=== PATIENT | female | born 1970 | race Caucasian/White ===

== ENCOUNTER 2017-01-17 02:13 | Inpatient (IN) | payer MEDICAID ==
[~2017-01-17] VITALS: Ht 157.5 cm; Wt 84.4 kg
[~2017-01-17 02:13] MED LIST: ASPI-535 PO; HYDR-3498 PO; IBUP-1542 PO
[2017-01-17 03:05] LABS: BASOPHILS % 0.5 % (0.0-2.0); EOSINOPHILS # 0.1 10^3/ul (0.0-0.5); EOSINOPHILS % 2.1 % (0.0-7.0); HEMATOCRIT 39.4 % (37.0-47.0); HEMOGLOBIN 13.6 g/dl (12.0-16.0); LYMPHOCYTES # 2.6 10^3/ul (0.8-2.9); LYMPHOCYTES % 39.5 % (15.0-51.0); MEAN CORPUSCULAR HEMOGLOBIN 31.1 pg (29.0-33.0); MEAN CORPUSCULAR HGB CONC 34.5 g/dl (32.0-37.0); MEAN PLATELET VOLUME 9.7 fl (7.4-10.4); MONOCYTE # 0.4 10^3/ul (0.3-0.9); MONOCYTES % 5.9 % (0.0-11.0); NEUTROPHIL # 3.4 10^3/ul (1.6-7.5); NEUTROPHILS % 51.8 % (39.0-77.0); PLATELET COUNT 228 10^3/UL (140-415); RED BLOOD COUNT 4.38 10^6/ul (4.20-5.40); WHITE BLOOD COUNT 6.6 10^3/ul (4.8-10.8)
[2017-01-17 03:27] LABS: ALBUMIN 4.3 g/dl (3.3-4.9); ALBUMIN/GLOBULIN RATIO 1.43; BILIRUBIN,INDIRECT 0.3 mg/dl (0-1.1); BILIRUBIN,TOTAL 0.3 mg/dl (0.2-1.3); CALCIUM 9.1 mg/dl (8.4-10.2); CREATININE 0.82 mg/dl (0.44-1.00); POTASSIUM 3.3 mmol/L (3.5-5.1); TOTAL PROTEIN 7.3 g/dl (6.1-8.1)
--- NOTE | 2017-01-17 03:32 | RADRPT ---
PROCEDURE: CHEST - 1 VIEW CLINICAL INDICATION: 46-year-old female with chest pain. TECHNIQUE: A single frontal AP upright portable view of the chest was performed. The images were reviewed on a PACS workstation. COMPARISON: CR CHEST 07/31/2015 FINDINGS: The cardiomediastinal silhouette has a normal appearance. There is no evidence for an infiltrate. There is no evidence for congestive heart failure. There is no evidence for pneumothorax. The osseou s structures are intact. IMPRESSION: No evidence for active cardiopulmonary disease. .Marlo Gallo MD, MD Date Time Electronically viewed and signed by .Marlo Gallo MD, on 01/17/2017 03:32 .M/
[2017-01-17 03:39] LABS: TROPONIN-I 0.583 ng/ml (0.00-0.12)
[2017-01-17] MEDS ORDERED: ASPIRIN 325 MG TAB PO ONE (04:00)
--- NOTE | 2017-01-17 05:36 | ERD ---
ER Documentation Chief Complaint Chief Complaint NON RADIATING CHEST PAIN SINCE 9PM. WORSE NOW. HX HEART ATTACK 15 YEARS AGO HPI This is a 46-year-old female with a non-rating chest pain since 9 PM. That is worse now. She has a history of heart attack 15 years ago. Pain is mild to moderate intensity, midsternal with no signs of elevated factors and is mild to moderate intensity. No shortness of breath. No diaphoresis. No other current complaints. ROS All systems reviewed and are negative except as per history of present illness. Medications Home Meds Active Scripts Ibuprofen* (Motrin*) 600 Mg Tab, 600 MG PO Q6H Y for PAIN AND OR ELEVATED TEMP, #30 TAB Prov:ALFA VELARDE MD 08/01/15 Hydrocodone Bit-Acetaminophen* ([place]*) 5-325 Mg Tab, 1 TAB PO Q6 Y for PAIN, # 10 TAB Prov:ALFA VELARDE MD 08/01/15 Reported Medications Aspirin Ec (Aspir 81) 81 Mg Tablet.dr, 81 MG PO DAILY, #30 TAB 07/31/15 Allergies Allergies: Coded Allergies: No Known Allergy (Unverified , 01/17/17) PMhx/Soc History of Surgery: No Anesthesia Reaction: No Hx Neurological Disorder: No Hx Respiratory Disorders: No Hx Cardiac Disorders: Yes (htn; cholesterol, HX of OR 15 years ago, possible stent) Hx Psychiatric Problems: No Hx Miscellaneous Medical Probl: Yes (shingles) Hx Alcohol Use: No Hx Substance Use: No Hx Tobacco Use: No Smoking Status: Never smoker Physical Exam Vitals Vital Signs Date Time Temp Pulse Resp B/P Pulse Ox O2 Delivery O2 Flow Rate FiO2 01/17/17 02:42 97.0 71 18 131/71 98 Room Air 01/17/17 02:15 97.0 102 18 180/78 95 Physical Exam Const: [] Head: Atraumatic Eyes: Normal Conjunctiva ENT: Normal External Ears, Nose and Mouth. Neck: Full range of motion..~ No meningismus. Resp: Clear to auscultation bilaterally Cardio: Regular rate and rhythm, no murmurs Abd: Soft, non tender, non distended. Normal bowel sounds Skin: No petechiae or rashes Back: No midline or flank tenderness Ext: No cyanosis, or edema Neur: Awake and alert Psych: Normal Mood and Affect Result Diagram: 01/17/17 0240 01/17/17 0240 Results 24 hrs Laboratory Tests Test 01/17/17 02:40 White Blood Count 6.610^3/ul Red Blood Count 4.3810^6/ul Hemoglobin 13.6g/dl Hematocrit 39.4% Mean Corpuscular Volume 90.0fl Mean Corpuscular Hemoglobin 31.1pg Mean Corpuscular Hemoglobin Concent 34.5g/dl Red Cell Distribution Width 12.0% Platelet Count 95450^3/UL Mean Platelet Volume 9.7fl Neutrophils % 51.8% Lymphocytes % 39.5% Monocytes % 5.9% Eosinophils % 2.1% Basophils % 0.5% Nucleated Red Blood Cells % 0.0/100WBC Neutrophils # 3.410^3/ul Lymphocytes # 2.610^3/ul Monocytes # 0.410^3/ul Eosinophils # 0.110^3/ul Basophils # 0.010^3/ul Nucleated Red Blood Cells # 0.010^3/ul Sodium Level 144mmol/L Potassium Level 3.3mmol/L Chloride Level 106mmol/L Carbon Dioxide Level 27mmol/L Anion Gap 14 Blood Urea Nitrogen 11mg/dl Creatinine 0.82mg/dl Glucose Level 131mg/dl Calcium Level 9.1mg/dl Total Bilirubin 0.3mg/dl Direct Bilirubin 0.00mg/dl Indirect Bilirubin 0.3mg/dl Aspartate Amino Transf (AST/SGOT) 46IU/L Alanine Aminotransferase (ALT/SGPT) 53IU/L Alkaline Phosphatase 85IU/L Troponin I 0.583ng/ml B-Type Natriuretic Peptide 493PG/ML Total Protein 7.3g/dl Albumin 4.3g/dl Globulin 3.00g/dl Albumin/Globulin Ratio 1.43 Current Medications Medications (Trade) Dose Ordered Sig/Yuliya Route PRN Reason Start Time Stop Time Status Last Admin Dose Admin Aspirin (Aspirin) 325 mg ONCE ONCE PO 01/17/17 04:00 01/17/17 04:01 DC 01/17/17 04:09 Procedures/MDM EKG: Rate/Rhythm: [Normal Sinus Rhythm] QRS, ST, T-waves: [No changes consistent w/ acute ischemia] Impression: [No evidence of ischemia or arrhythmia]\ Chest X-ray 1V Interpreted by me: Soft Tissue: No acute abnormalities Bones: No acute abnormalities Mediastinum/Cardiac Silhouette/Lungs: [No acute abnormalities] Patient's symptoms are concerning for cardiac cause will require inpatient workup and continuous monitoring. Further w/u for ischemia, arrhythmia, PE or dissection will be deferred to the inpatient team. Accepting Care Team: Current data and ongoing care discussed. Time: 5:35 AM Primary Provider: Hospitalist Consulting: [XOXOXO] Outstanding Data: none Departure Diagnosis: Primary Impression: Chest pain Chest pain type: unspecified Qualified Code: R07.9 - Chest pain, unspecified type Additional Impression: NSTEMI (non-ST elevated myocardial infarction) Condition: Serious GINNY FRANZ Jan 17, 2017 05:36
[2017-01-17] MEDS ORDERED: NITROGLYCERIN (SL) 0.4 MG TAB SL ONE (08:00)
[2017-01-17] MEDS ORDERED: morphine 2 MG INJ IV PRN (08:00)
[2017-01-17] MEDS ORDERED: LISI-313 PO (08:08)
--- NOTE | 2017-01-17 09:05 | HP ---
Date/Time of Note Date/Time of Note DATE: 01/17/17 TIME: 09:05 Assessment/Plan VTE Prophylaxis VTE Prophylaxis Intervention: heparin Lines/Catheters IV Catheter Type (from Nrsg): Saline Lock Assessment/Plan Assessment/Plan 1. NSTEMI -admit to tele -trend trop -supplemental oxygen, ASA, BB, statin with as needed nitro and morphine -start treatment dose heparin based on next trop level -2D-echo and cardiology consult 2. Hypertension: better controlled now -cont anti-hypertensives with adjustment as needed 3. Hypokalemia -replete HPI/ROS Admit Date/Time Admit Date/Time Hx of Present Illness This is a 46 yo female with hx of HTN who presented to ER co chest pain x 1 day. Pain id slightly left sided with no radiation. No associated SOB, N/V or diaphoresis. In ER, BP was 180/78 with HR of 102. EKG no ST-T wave abnormalities and first trop is 0.583. PMH/Family/Social Social History Smoking Status: Never smoker Exam/Review of Systems Vital Signs Vitals Vital Signs Date Time Temp Pulse Resp B/P Pulse Ox O2 Delivery O2 Flow Rate FiO2 01/17/17 06:49 97.9 75 18 149/78 98 Room Air 01/17/17 06:31 2 Exam Constitutional: alert, oriented, well developed Head: atraumatic, normocephalic Eyes: EOMI, PERRL Respiratory: clear to auscultation, normal air movement Cardiovascular: nl pulses, regular rate and rhythm Gastrointestinal: non-tender, soft Extremities: normal pulses Labs Result Diagram: 01/17/17 0240 01/17/17 0240 Medications Medications Current Medications Morphine Sulfate (morphine) 2 mg Q4H PRN IV pain Last administered on 08:54; Admin Dose 2 MG; Start 01/17/17 at 08:00 Metoprolol Tartrate (Lopressor) 25 mg Q12 PO ; Start 01/17/17 at 09:00 Atorvastatin Calcium (Lipitor) 40 mg QHS PO ; Start 01/17/17 at 21:00 GINNY BOSS MD Jan 17, 2017 09:05
[2017-01-17 09:42] LABS: CK-MB 22.8 ng/ml (0.0-2.4)
[2017-01-17 09:57] LABS: TROPONIN-I 2.09 ng/ml (0.00-0.12)
[2017-01-17] MEDS: LISINOPRIL 5 MG TAB PO SCH (10:01)
[2017-01-17] MEDS ORDERED: HEPARIN 1000 UNITS/ML 10 ML INJ IV ONE (11:00)
[2017-01-17] MEDS ORDERED: HEPARIN 1000 UNITS/ML 10 ML INJ IV PRN (11:00)
[2017-01-17] MEDS: HEPARIN 25000 UNITS/250 ML 250 ML IV SCH ×2 (11:04→18:32)
[2017-01-17 11:15] LABS: BASOPHILS % 0.3 % (0.0-2.0); EOSINOPHILS # 0.1 10^3/ul (0.0-0.5); EOSINOPHILS % 1.6 % (0.0-7.0); HEMATOCRIT 37.3 % (37.0-47.0); HEMOGLOBIN 12.9 g/dl (12.0-16.0); LYMPHOCYTES # 2.2 10^3/ul (0.8-2.9); LYMPHOCYTES % 34.5 % (15.0-51.0); MEAN CORPUSCULAR HEMOGLOBIN 31.3 pg (29.0-33.0); MEAN CORPUSCULAR HGB CONC 34.6 g/dl (32.0-37.0); MEAN CORPUSCULAR VOLUME 90.5 fl (82.0-101.0); MEAN PLATELET VOLUME 9.6 fl (7.4-10.4); MONOCYTE # 0.5 10^3/ul (0.3-0.9); MONOCYTES % 7.7 % (0.0-11.0); NEUTROPHIL # 3.5 10^3/ul (1.6-7.5); NEUTROPHILS % 55.6 % (39.0-77.0); PLATELET COUNT 216 10^3/UL (140-415); RED BLOOD COUNT 4.12 10^6/ul (4.20-5.40); RED CELL DISTRIBUTION WIDTH 12.2 % (11.5-14.5); WHITE BLOOD COUNT 6.4 10^3/ul (4.8-10.8)
[2017-01-17 11:33] LABS: INR 1.02; PROTIME 13.5 Sec (11.9-14.9); PT RATIO 1.1
[2017-01-17 11:34] LABS: PARTIAL THROMBOPLASTIN TIME 28.4 Sec (25.0-35.0)
[2017-01-17] MEDS ORDERED: ACETAMINOPHEN 325 MG TAB PO PRN (13:00)
[2017-01-17] MEDS ORDERED: ONDANSETRON 4 MG INJ IV PRN (13:00)
[2017-01-17] MEDS: METOPROLOL 25 MG TAB PO SCH ×2 (14:37→20:46)
--- NOTE | 2017-01-17 15:24 | RADRPT ---
Echocardiogram Report Patient Name: MAVERICK NORTON Gender: Female Date: 1970 Study Date: 17-Jan-2017 Hand Coke Drawer: Mechelle Ochoa RDCS Location: [facility] Ref. Physician: GINNY BOSS Quality: Good Procedures: Transthoracic echocardiogram with complete 2D, M-Mode, and doppler examination. Indications: NSTEMI. 2D/M Mode Doppler Measurement Value Normal Ranges Measurement Value Normal Ranges LVIDd 2D 4.5 3.5 - 5.6 cm AV Peak Marcin 1.3 m/sec LVIDs 2D 2.3 2.1 - 4.1 cm AV Peak PG 6.6 mmHg LVPWd 2D 1.0 0.6 - 1.1 cm LVOT Peak Marcin 1.1 m/sec IVSd 2D 1.0 0.6 - 1.1 cm LVOT Peak PG 5.0 mmHg AoR Diam 2D 2.3 2.0 - 3.7 cm MV E Peak Marcin 0.7 m/sec EDV 2D 93.5 cm3 MV A Peak Marcin 0.8 m/sec ESV 2D 11.7 cm3 MV E/A 1.0 LA Dimen 2D 2.7 2.3 - 4.0 cm MV Decel Time 169 msec MV Decel [place] 4 MV E/A 1.0 TR Peak Marcin 2.8 m/sec TR Peak PG 31.2 mmHg RVSP 34.0 mmHg Findings Left Ventricle: Lower limits of normal systolic function. Normal left ventricular cavity size. Normal left ventricular wall thickness. Ejection fraction is visually estimated at 5055 %. These segments of the LV are hypokinetic apex. Right Ventricle: Normal right ventricular size. Normal right ventricular systolic function. Left Atrium: The left atrium is normal in size. Right Atrium: The right atrium is normal in size. Mitral Valve: Normal appearance of the mitral valve. Trace mitral regurgitation. Aortic Valve: Normal appearance of the aortic valve. No significant aortic stenosis or insufficiency. Tricuspid Valve: Normal appearance of the tricuspid valve. Estimated peak PA systolic pressure 34 mmHg. There is mild tricuspid regurgitation. Pulmonic Valve: Normal pulmonic valve appearance. Pericardium: Normal pericardium with no significant pericardial effusion. Aorta: Normal aortic root. IVC: Normal size and normal respiratory collapse consistent with normal right atrial pressure. Conclusions 1.The left ventricle is normal in size with lower limits of normal overall systolic function. 2.The apex is hypokinetic. 3.Estimated left ventricular ejection fraction of 50-55%. Electronically Signed By: Willian Villanueva 17-Jan-2017 15:23:55 -0800 Patient Name: MAVERICK NORTON Study Date: 17-Jan-[id number]
[2017-01-17 15:39] LABS: CK-MB 26.1 ng/ml (0.0-2.4)
--- NOTE | 2017-01-17 15:49 | CONS ---
Date/Time of Note Date/Time of Note DATE: 01/17/17 TIME: 15:43 Assessment/Plan Assessment/Plan Chief Complaint/Hosp Course Assessment: NSTEMI Coronary artery disease Hypertension Hypokalemia - replete Recommendations: -continue heparin drip -continue aspirin at 325mg daily -continue atorvastatin 40mg daily, check lipid panel -continue metoprolol 25mg BID and lisinopril 5mg daily, up titrate as needed/ tolerated -echocardiogram showed LVEF 50-55%, hypokinetic apex -coronary angiography scheduled for tomorrow morning Problems: Consultation Date/Type/Reason Admit Date/Time Type of Consultation: Cardiology Reason for Consultation elevated troponin Hx of Present Illness The patient is a 46 year-old female who presented with a one day history of chest pain. EKG showed sinus rhythm, Q wave in III, poor R wave progression, and no acute ischemic changes. Initial troponin was elevated at 0.583 and the second troponin trended up to 2.09. She reports a history of myocardial infarction 10 years ago. She underwent coronary angiography at that time, but is unsure if she had percutaneous coronary intervention. 14 point review of systems negative other than per HPI. Past Medical History Medical History: coronary artery disease, hypertension Past Surgical History Past Surgical Hx: no surgical history Family History Significant Family History: no pertinent family hx Social History Smoking Status: Never smoker Exam/Review of Systems Vital Signs Vitals Vital Signs Date Time Temp Pulse Resp B/P Pulse Ox O2 Delivery O2 Flow Rate FiO2 01/17/17 13:38 97.9 58 20 131/68 98 Room Air 01/17/17 06:31 2 Exam Constitutional: alert, well developed Psych: nl mood/affect, no complaints Head: atraumatic, normocephalic Eyes: nl conjunctiva, nl lids ENMT: nl external ears & nose, nl nasal mucosa & septum Neck: non-tender, supple, No jvd Respiratory: clear to auscultation, normal air movement Cardiovascular: regular rate and rhythm Gastrointestinal: non-tender, soft Musculoskeletal: nl extremities to inspection Extremities: No clubbing, No cyanosis, No edema Neurological: nl mental status, nl speech Skin: nl turgor Results Result Diagram: 01/17/17 1055 01/17/17 0240 Results 24 hrs Laboratory Tests Test 01/17/17 02:40 01/17/17 08:43 01/17/17 10:55 White Blood Count 6.6 # 6.4 Red Blood Count 4.38 4.12 L Hemoglobin 13.6 12.9 Hematocrit 39.4 37.3 Mean Corpuscular Volume 90.0 90.5 Mean Corpuscular Hemoglobin 31.1 31.3 Mean Corpuscular Hemoglobin Concent 34.5 34.6 Red Cell Distribution Width 12.0 12.2 Platelet Count 228 216 Mean Platelet Volume 9.7 # 9.6 Neutrophils % 51.8 55.6 Lymphocytes % 39.5 34.5 Monocytes % 5.9 7.7 Eosinophils % 2.1 1.6 Basophils % 0.5 0.3 Nucleated Red Blood Cells % 0.0 0.0 Neutrophils # 3.4 3.5 Lymphocytes # 2.6 2.2 Monocytes # 0.4 0.5 Eosinophils # 0.1 0.1 Basophils # 0.0 0.0 Nucleated Red Blood Cells # 0.0 0.0 Sodium Level 144 Potassium Level 3.3 L Chloride Level 106 Carbon Dioxide Level 27 Anion Gap 14 Blood Urea Nitrogen 11 Creatinine 0.82 Glucose Level 131 Calcium Level 9.1 Total Bilirubin 0.3 Direct Bilirubin 0.00 Indirect Bilirubin 0.3 Aspartate Amino Transf (AST/SGOT) 46 Alanine Aminotransferase (ALT/SGPT) 53 Alkaline Phosphatase 85 Troponin I 0.583 *H 2.090 *H B-Type Natriuretic Peptide 493 H Total Protein 7.3 Albumin 4.3 Globulin 3.00 Albumin/Globulin Ratio 1.43 Creatine Kinase 426 H Creatine Kinase Index 5.4 Creatinine Kinase MB (Mass) 22.80 H Prothrombin Time 13.5 Prothrombin Time Ratio 1.1 INR International Normalized Ratio 1.02 Activated Partial Thromboplast Time 28.4 Medications Medications Current Medications Morphine Sulfate (morphine) 2 mg Q4H PRN IV pain Last administered on 08:54; Admin Dose 2 MG; Start 01/17/17 at 08:00 Metoprolol Tartrate (Lopressor) 25 mg Q12 PO Last administered on 01/17/17 14: 37; Admin Dose 25 MG; Start 01/17/17 at 09:00 Atorvastatin Calcium (Lipitor) 40 mg QHS PO ; Start 01/17/17 at 21:00 Aspirin (Halfprin) 81 mg DAILY PO ; Start 01/18/17 at 09:00 Lisinopril (Zestril) 5 mg DAILY PO Last administered on 01/17/17t 10:01; Admin Dose 5 MG; Start 01/17/17 at 09:30 Ondansetron HCl (Zofran Inj) 4 mg Q4 PRN IV NAUSEA; Start 01/17/17 at 13:00 Acetaminophen (Tylenol Tab) 650 mg Q6 PRN PO PAIN LEVEL 1-3 OR FEVER; Start at 13:00 BERNADINE ROSE MD Jan 17, 2017 15:49
[2017-01-17 15:53] LABS: TROPONIN-I 6.8 ng/ml (0.00-0.12)
[2017-01-17 16:19] VITALS: TEMP 98.9
[2017-01-17 17:17] VITALS: Ht 157.5 cm; Wt 84.4 kg
[2017-01-17 17:20] VITALS: PULSE 54
[2017-01-17 17:23] VITALS: BP 133/78; PULSE 52; RESP 18
[2017-01-17 19:21] VITALS: BP 127/64; RESP 20
[2017-01-17 20:45] VITALS: PULSE 66
[2017-01-17] MEDS ORDERED: ATORVASTATIN 40 MG TAB PO SCH (21:00)
[2017-01-18] VITALS (36 sets, daily range): BP systolic 90–143; BP diastolic 52–78; PULSE 50–85; RESP 12–22
[2017-01-18] MEDS: SOD CHLORIDE 0.9% 1,000 ML IV SCH ×2 (00:05→09:50)
[2017-01-18] MEDS: ASPIRIN (EC) 325 MG TAB PO SCH ×2 (08:48→08:51)
[2017-01-18] MEDS: METOPROLOL 25 MG TAB PO SCH ×2 (08:48→09:11)
[2017-01-18] MEDS: LISINOPRIL 5 MG TAB PO SCH ×2 (08:48→09:10)
[2017-01-18] MEDS ORDERED: ASPIRIN (EC) 81 MG TAB PO SCH (09:00)
[2017-01-18 09:10] LABS: BASOPHILS % 0.4 % (0.0-2.0); EOSINOPHILS # 0.1 10^3/ul (0.0-0.5); EOSINOPHILS % 2.7 % (0.0-7.0); HEMATOCRIT 39.2 % (37.0-47.0); HEMOGLOBIN 13.3 g/dl (12.0-16.0); LYMPHOCYTES # 2.3 10^3/ul (0.8-2.9); LYMPHOCYTES % 46.1 % (15.0-51.0); MEAN CORPUSCULAR HEMOGLOBIN 31.1 pg (29.0-33.0); MEAN CORPUSCULAR HGB CONC 33.9 g/dl (32.0-37.0); MEAN CORPUSCULAR VOLUME 91.6 fl (82.0-101.0); MEAN PLATELET VOLUME 9.8 fl (7.4-10.4); MONOCYTE # 0.4 10^3/ul (0.3-0.9); MONOCYTES % 7.8 % (0.0-11.0); NEUTROPHIL # 2.1 10^3/ul (1.6-7.5); PLATELET COUNT 237 10^3/UL (140-415); RED BLOOD COUNT 4.28 10^6/ul (4.20-5.40); RED CELL DISTRIBUTION WIDTH 12.4 % (11.5-14.5); WHITE BLOOD COUNT 4.9 10^3/ul (4.8-10.8)
[2017-01-18 09:38] LABS: CALCIUM 9.5 mg/dl (8.4-10.2); CHOL/HDL RATIO 3.9 RATIO; CREATININE 0.75 mg/dl (0.44-1.00); POTASSIUM 4.8 mmol/L (3.5-5.1)
[2017-01-18] MEDS: HEPARIN 25000 UNITS/250 ML 250 ML IV SCH (09:57)
[2017-01-18] MEDS ORDERED: IODIXANOL LOCM 100 ML BTL ONE (10:03)
[2017-01-18] MEDS ORDERED: MIDAZOLAM 1 MG/ML 2 ML INJ ONE (10:03)
[2017-01-18] MEDS ORDERED: LIDOCAINE 1% (MDV) 20 ML INJ ONE (10:03)
[2017-01-18] MEDS ORDERED: ADENOSINE 30 ML ONE (10:03)
[2017-01-18] MEDS ORDERED: HEPARIN 1000 UNITS/ML 10 ML INJ ONE (10:03)
[2017-01-18] MEDS ORDERED: FENTAnyl 50 MCG/ML VIAL ONE (10:04)
[2017-01-18] MEDS ORDERED: VERAPAMIL 5 MG INJ ONE (10:04)
[2017-01-18] MEDS ORDERED: NITROGLYCERIN (IC) 100 MCG/ML INJ ONE (10:04)
[2017-01-18] MEDS ORDERED: SOD CHLORIDE 0.9% 1,000 ML IV SCH (11:34)
--- NOTE | 2017-01-18 11:44 | OPR ---
Date/Time of Note Date/Time of Note DATE: 01/18/17 TIME: 11:37 Operative Report Preoperative Diagnosis NSTEMI Postoperative Diagnosis same Surgeon see signature line Platinumsmith none Anesthesia Type: moderate sedation Estimated Blood Loss: minimal Transfusion none Specimen none Grafts/Implants none Complications none Procedure Description Procedure Date:01/18/2017 Loop Tender/surgeon:Cristino Hart MD. Procedures Performed: 1)Left heart catheterization with selective left and right coronary angiography. 2)Left ventricle angiography Pre-operative Diagnosis:NSTEMI Post-operative Diagnosis: NSTEMI, ?takotsubo variant Indications: 46 yo F who presented with chest pain and was found to have an NSTEMI with trop 6.8 Description of Procedure: After informed consent, the patient was brought to the cardiac catheterization lab. The procedure site was prepped and draped in usual manner. The patient was premedicated with versed 1.5 mg and fentanyl 25 mcg. 2 mL lidocaine was injected into the right wrist. Next using the posterior wall technique, the 6/ 5 djiboutian sheath was inserted into the right radial artery. Next using the JL3.5 and JR4, selective angiography of the left and right coronary arteries were obtained. The pigtail was then advanced into the ventricle and hemodynamics obtained. Left ventricle angiography was obtained. Next all equipment was removed and hemostasis was obtained by TR band. Findings: Anatomy/Hemodynamics: Left main:normal LAD: normal Diagonal:normal Circumflex: normal Obtuse marginal:normal RCA:normal PDA: mid 40% at a turn vs tortuosity PLV: normal LV angiography: 40-45% with dyskinesis of the distal anterior and inferior apex but not the mid apex. ?Takotsubo variant LV-Ao: no gradient LVEDP: 20mmHg Contrast used: 105mL Fluoroscopy time:7 mL Estimated blood loss<10 mL. Specimen: none Grafts/implants: none Complications: none Assessment: NSTEMI with no obstructive lesions ?Variant Takotsubo: not typical appearance. Pt lost family members but 2 months ago so unclear if related but she has had significant stress since Cardiomyopathy Plan: -medical management of NSTEMI/cardiomyopathy CRISTINO HART Jan 18, 2017 11:44
--- NOTE | 2017-01-18 13:29 | PN ---
Date/Time of Note Date/Time of Note DATE: 01/18/17 TIME: 13:24 Assessment/Plan VTE Prophylaxis VTE Prophylaxis Intervention: SCD's Lines/Catheters IV [facility] Peripheral IV Assessment/Plan Chief Complaint/Hosp Course Assessment and plan 1. Non-ST elevated myocardial infarction. Patient was seen by blasting cap assembler. Patient is currently in recovery. Per report no obstructive lesion seen. Suspect possible ovarian tach with cerebral. Continue telemetry monitoring. Follow-up with blasting cap assembler recommendations. 2. History of CAD. Continue on statin medication. 3. Hypertension. Continue antihypertensives and adjust needed. Disposition plan: We will follow-up postop. Continue in-house monitoring. Follow-up with blasting cap assembler recommendations. Discussed plan of care with Dr. Tamayo Problems: Subjective 24 Hr Interval Summary Free Text/Dictation patient for heart cath Exam/Review of Systems Vital Signs Vitals Vital Signs Date Time Temp Pulse Resp B/P Pulse Ox O2 Delivery O2 Flow Rate FiO2 01/18/17 12:52 52 14 120/61 98 Room Air 01/18/17 09:10 98.1 01/17/17 06:31 2 Intake and Output 01/17/17 01/17/17 01/18/17 15:00 23:00 07:00 Intake Total 240 ml 240 ml Balance 240 ml 240 ml Exam patient for heart cath Results Result Diagram: 01/18/1718 01/18/17 0818 Results 24 hrs Laboratory Tests Test 01/17/17 14:45 01/17/17 17:25 01/18/17 00:11 01/18/17 08:18 Creatine Kinase 466 H Creatine Kinase Index 5.6 Creatinine Kinase MB (Mass) 26.10 H Troponin I 6.800 *H Activated Partial Thromboplast Time 107.1 *H 67.8 H 69.7 H White Blood Count 4.9 # Red Blood Count 4.28 Hemoglobin 13.3 Hematocrit 39.2 Mean Corpuscular Volume 91.6 Mean Corpuscular Hemoglobin 31.1 Mean Corpuscular Hemoglobin Concent 33.9 Red Cell Distribution Width 12.4 Platelet Count 237 Mean Platelet Volume 9.8 Neutrophils % 43.0 Lymphocytes % 46.1 Monocytes % 7.8 Eosinophils % 2.7 Basophils % 0.4 Nucleated Red Blood Cells % 0.0 Neutrophils # 2.1 Lymphocytes # 2.3 Monocytes # 0.4 Eosinophils # 0.1 Basophils # 0.0 Nucleated Red Blood Cells # 0.0 Sodium Level 144 Potassium Level 4.8 Chloride Level 107 Carbon Dioxide Level 30 Anion Gap 12 Blood Urea Nitrogen 10 Creatinine 0.75 Glucose Level 94 Hemoglobin A1c 5.4 Calcium Level 9.5 Triglycerides Level 99 Cholesterol Level 154 LDL Cholesterol, Calculated 95 HDL Cholesterol 39 Cholesterol/HDL Ratio 3.9 Medications Medications Current Medications Morphine Sulfate (morphine) 2 mg Q4H PRN IV pain Last administered on 08:54; Admin Dose 2 MG; Start 01/17/17 at 08:00 Metoprolol Tartrate (Lopressor) 25 mg Q12 PO Last administered on 01/18/17 09: 11; Admin Dose 25 MG; Start 01/17/17 at 09:00 Atorvastatin Calcium (Lipitor) 40 mg QHS PO Last administered on 01/17/17 20: 45; Admin Dose 40 MG; Start 01/17/17 at 21:00 Lisinopril (Zestril) 5 mg DAILY PO Last administered on 01/18/17 09:10; Admin Dose 5 MG; Start 01/17/17 at 09:30 Ondansetron HCl (Zofran Inj) 4 mg Q4 PRN IV NAUSEA; Start 01/17/17 at 13:00 Acetaminophen (Tylenol Tab) 650 mg Q6 PRN PO PAIN LEVEL 1-3 OR FEVER; Start at 13:00 Aspirin 325 mg 325 mg DAILY PO ; Start 01/18/17 at 09:00 Sodium Chloride (NS) 1,000 ml @ 75 mls/hr [id number] IV ; Start 01/18/17 at 11:34 ; Stop 01/18/17 at 16:33 CHELSEA ALMAZAN Jan 18, 2017 13:29
--- NOTE | 2017-01-18 19:48 | CONS ---
Date/Time of Note Date/Time of Note DATE: 01/18/17 TIME: 19:45 Assessment/Plan Assessment/Plan Chief Complaint/Hosp Course Assessment: NSTEMI - possible Takotsubo variant, echocardiogram showed LVEF 50-55% with hypokinetic apex Coronary artery disease - nonobstructive disease on coronary angiography Hypertension Hypokalemia - replete Recommendations: -continue aspirin at 81mg daily -decrease atorvastatin to 10mg daily -change metoprolol to carvedilol 6.25mg BID -continue lisinopril 5mg daily -anticipate discharge tomorrow if remains stable Problems: Consultation Date/Type/Reason Admit Date/Time Jan 17, 2017 at 05:37 Initial Consult Date Type of Consultation: Cardiology 24 HR Interval Summary Free Text/Dictation Coronary angiography today showed no obstructive coronary artery disease. Doing well post-procedure Right radial artery access site intact. Detailed Summary Additional Comments 14 point review of systems without changes. Exam/Review of Systems Vital Signs Vitals Vital Signs Date Time Temp Pulse Resp B/P Pulse Ox O2 Delivery O2 Flow Rate FiO2 01/18/17 16:12 65 01/18/17 15:46 98.4 20 128/58 97 01/18/17 14:04 Room Air 01/17/17 06:31 2 Intake and Output 01/17/17 01/17/17 01/18/17 15:00 23:00 07:00 Intake Total 240 ml 240 ml Balance 240 ml 240 ml Exam Constitutional: alert, well developed Psych: nl mood/affect, no complaints Head: atraumatic, normocephalic Eyes: nl conjunctiva, nl lids ENMT: nl external ears & nose, nl nasal mucosa & septum Neck: non-tender, supple, No jvd Respiratory: clear to auscultation, normal air movement Cardiovascular: regular rate and rhythm Gastrointestinal: non-tender, soft Musculoskeletal: nl extremities to inspection Extremities: No clubbing, No cyanosis, No edema Neurological: nl mental status, nl speech Skin: nl turgor Results Result Diagram: 01/18/1718 01/18/17 0818 Results 24 hrs Laboratory Tests Test 01/18/17 00:11 01/18/17 08:18 Activated Partial Thromboplast Time 67.8 H 69.7 H White Blood Count 4.9 # Red Blood Count 4.28 Hemoglobin 13.3 Hematocrit 39.2 Mean Corpuscular Volume 91.6 Mean Corpuscular Hemoglobin 31.1 Mean Corpuscular Hemoglobin Concent 33.9 Red Cell Distribution Width 12.4 Platelet Count 237 Mean Platelet Volume 9.8 Neutrophils % 43.0 Lymphocytes % 46.1 Monocytes % 7.8 Eosinophils % 2.7 Basophils % 0.4 Nucleated Red Blood Cells % 0.0 Neutrophils # 2.1 Lymphocytes # 2.3 Monocytes # 0.4 Eosinophils # 0.1 Basophils # 0.0 Nucleated Red Blood Cells # 0.0 Sodium Level 144 Potassium Level 4.8 Chloride Level 107 Carbon Dioxide Level 30 Anion Gap 12 Blood Urea Nitrogen 10 Creatinine 0.75 Glucose Level 94 Hemoglobin A1c 5.4 Calcium Level 9.5 Triglycerides Level 99 Cholesterol Level 154 LDL Cholesterol, Calculated 95 HDL Cholesterol 39 Cholesterol/HDL Ratio 3.9 Medications Medications Current Medications Morphine Sulfate (morphine) 2 mg Q4H PRN IV pain Last administered on 08:54; Admin Dose 2 MG; Start 01/17/17 at 08:00 Metoprolol Tartrate (Lopressor) 25 mg Q12 PO Last administered on 01/18/17 09: 11; Admin Dose 25 MG; Start 01/17/17 at 09:00 Atorvastatin Calcium (Lipitor) 40 mg QHS PO Last administered on 01/17/17 20: 45; Admin Dose 40 MG; Start 01/17/17 at 21:00 Lisinopril (Zestril) 5 mg DAILY PO Last administered on 01/18/17 09:10; Admin Dose 5 MG; Start 01/17/17 at 09:30 Ondansetron HCl (Zofran Inj) 4 mg Q4 PRN IV NAUSEA; Start 01/17/17 at 13:00 Acetaminophen (Tylenol Tab) 650 mg Q6 PRN PO PAIN LEVEL 1-3 OR FEVER Last administered on 01/18/17 14:09; Admin Dose 650 MG; Start 01/17/17 at 13:00 Aspirin (Ecotrin) 325 mg DAILY PO ; Start 01/18/17 at 09:00 BERNADINE ROSE MD Jan 18, 2017 19:48
[2017-01-18] MEDS ORDERED: ATORVASTATIN 40 MG TAB PO SCH (21:00)
[2017-01-19] VITALS (8 sets, daily range): BP systolic 98–125; BP diastolic 50–97; PULSE 60–81; RESP 19–20
[2017-01-19] MEDS: LISINOPRIL 5 MG TAB PO SCH (08:16)
[2017-01-19] MEDS ORDERED: ASPIRIN (EC) 325 MG TAB PO SCH (09:00)
--- NOTE | 2017-01-19 11:48 | PN ---
Date/Time of Note Date/Time of Note DATE: 01/19/17 TIME: 11:45 Assessment/Plan VTE Prophylaxis VTE Prophylaxis Intervention: SCD's Lines/Catheters IV Catheter Type (from Nrs): Saline Lock Assessment/Plan Chief Complaint/Hosp Course Assessment and plan 1. Non-ST elevated myocardial infarction. Patient was seen by physician office secretary. Suspect possible takutsubo variant. continue BB 2. History of CAD. Continue on statin medication. 3. Hypertension. Continue antihypertensives and adjust needed. Disposition plan: appears improving. continue optimization with cardiovascular medications. d/c when cleared by consultants Discussed plan of care with Dr. Tamayo Problems: Subjective 24 Hr Interval Summary Free Text/Dictation no s/s of distress Exam/Review of Systems Vital Signs Vitals Vital Signs Date Time Temp Pulse Resp B/P Pulse Ox O2 Delivery O2 Flow Rate FiO2 01/19/17 08:00 75 01/19/17 07:43 98.6 19 118/97 97 01/18/17 14:04 Room Air 01/17/17 06:31 2 Intake and Output 01/18/17 01/18/17 01/19/17 15:00 23:00 07:00 Intake Total 100 ml 700 ml 400 ml Balance 100 ml 700 ml 400 ml Exam Constitutional: alert, oriented Psych: nl mood/affect Head: normocephalic Neck: non-tender, supple Respiratory: clear to auscultation Cardiovascular: regular rate and rhythm Gastrointestinal: non-tender, soft Musculoskeletal: nl extremities to inspection Extremities: normal pulses 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 intact, nl mental status, nl speech Skin: nl turgor Results Result Diagram: 01/18/1781701/18/1718 Medications Medications Current Medications Morphine Sulfate (morphine) 2 mg Q4H PRN IV pain Last administered on 08:54; Admin Dose 2 MG; Start 01/17/17 at 08:00 Lisinopril (Zestril) 5 mg DAILY PO Last administered on 01/19/17 08:16; Admin Dose 5 MG; Start 01/17/17 at 09:30 Ondansetron HCl (Zofran Inj) 4 mg Q4 PRN IV NAUSEA; Start 01/17/17 at 13:00 Acetaminophen (Tylenol Tab) 650 mg Q6 PRN PO PAIN LEVEL 1-3 OR FEVER Last administered on 01/18/17 14:09; Admin Dose 650 MG; Start 01/17/17 at 13:00 Aspirin (Ecotrin) 81 mg DAILY PO Last administered on 01/19/17 08:15; Admin Dose 81 MG; Start 01/19/17 at 09:00 Atorvastatin Calcium (Lipitor) 10 mg QHS PO Last administered on 01/18/17 20: 29; Admin Dose 10 MG; Start 01/18/17 at 21:00 Carvedilol (Coreg) 6.25 mg BID PO Last administered on 01/19/17 08:16; Admin Dose 6.25 MG; Start 01/18/17 at 21:00 CHELSEA ALMAZAN Jan 19, 2017 11:48
[2017-01-19] MEDS ORDERED: CARV6.2579 PO (11:50)
[2017-01-19] MEDS ORDERED: ASPI325T32 PO (11:50)
[2017-01-19] MEDS ORDERED: ATOR40TA68 PO (11:50)
[2017-01-19] MEDS ORDERED: LISI-313 PO (11:50)
--- NOTE | 2017-01-19 14:54 | PDOCDIS ---
Discharge Instructions DIAGNOSIS Discharge Diagnosis 1. Non-ST elevated myocardial infarction. Suspect possible takutsubo variant. 2. History of CAD. 3. Hypertension. CONDITION Patient Condition: Stable HOME CARE INSTRUCTIONS: Special Diet: CARDIAC FOLLOW UP/APPOINTMENTS Follow-up Plan 1. follow up with your primary care provider in a week 2. Follow up with Dr. Willian Villanueva in a week CHELSEA ALMAZAN Jan 19, 2017 14:54
== END 2017-01-19 15:57 | disposition home or self-care (01) | DRG 281 ==
LOC: E/R 02:13 → TEL 05:37
PROVIDERS: ADMIT Internal Medicine; ATTEND Internal Medicine
PROC: B211YZZ Fluoroscopy of Multiple Coronary Arteries using Other Contrast (ICD-10-PCS; 2017-01-18)
PROC: B215YZZ Fluoroscopy of Left Heart using Other Contrast (ICD-10-PCS; 2017-01-18)
PROC: 4A023N7 Measurement of Cardiac Sampling and Pressure, Left Heart, Percutaneous Approach (ICD-10-PCS; principal; 2017-01-18 10:30)
DX: I21.4 Non-ST elevation (NSTEMI) myocardial infarction (principal); I42.9 Cardiomyopathy, unspecified; I51.81 Takotsubo syndrome; E87.6 Hypokalemia; I10 Essential (primary) hypertension; I25.10 Atherosclerotic heart disease of native coronary artery without angina pectoris; E78.5 Hyperlipidemia, unspecified; I25.2 Old myocardial infarction; Z79.82 Long term (current) use of aspirin
CPT/HCPCS: 36415; 71010; 80048; 80053; 80061; 82550; 82553; 83036; 83880; 84484; 85025; 85610; 85730; 93005; 93306; 93458; 96374; 96375; J0153; J1644; J2250; J2270; J2405; J3010; J7030; Q9967